=== PATIENT | male | born 1970 | race Caucasian/White ===

== ENCOUNTER 2023-01-01 06:56 | Emergency (ER) | payer MEDICAID ==
[~2023-01-01] VITALS: Ht 167.6 cm; Wt 74.8 kg
--- NOTE | 2023-01-01 07:09 | NUR ---
BIBSELF C/O NUMBNESS TO BILATERAL LEGS AND HANDS. +BLURRY VISION X1 WEEK WORSE STARTING YESTERDAY. PT A/OX4;VINCENTIAN SPEAKING. TOLERATING R/A WELL WITH NO RESP DISTRESS. CONNECTED PT TO POX AND MONITOR. SAFETY MEASURES IN PLACE.
--- NOTE | 2023-01-01 07:15 | NUR ---
RECEIVED PT FROM CORNELIO GONZALEZ PT AWAKEAND ALERT C/O NUMMBNESS ON LOWE EXTRAMITY AND VISOUN AWAKE AND ALERT FALLOW COMMAND
[2023-01-01] MEDS ORDERED: IV NS 0.9% 1,000 ML BAG IV ONE (08:00)
--- NOTE | 2023-01-01 08:05 | NUR ---
CX RAY AT BED SIDE
[2023-01-01 08:07] LABS: BASOPHILS % (AUTO) 0.6 % (0.0-2.0); EOSINOPHILS % (AUTO) 9.1 % (0.0-6.0); HEMATOCRIT 42 % (39-51); HEMOGLOBIN 13.9 g/dL (13.5-17.5); LYMPHOCYTES # (AUTO) 1.8 K/uL (0.8-4.8); LYMPHOCYTES % (AUTO) 24.6 % (20.0-44.0); MEAN CORPUSCULAR HGB CONC 33 g/dl (31.0-36.0); MEAN CORPUSCULAR VOLUME 89 fL (80-96); MONOCYTES # (AUTO) 0.6 K/uL (0.1-1.30); MONOCYTES % (AUTO) 7.7 % (2.0-12.0); NEUTROPHILS # (AUTO) 4.2 K/uL (1.8-8.9); PLATELET COUNT (AUTO) 324 K/uL (150-450); RED BLOOD CELL COUNT(AUTO) 4.69 MIL/uL (4.5-6.0); WHITE BLOOD COUNT (AUTO) 7.3 K/uL (4.3-11.0)
[2023-01-01 08:24] LABS: ALANINE AMINOTRANSFERASE 54 U/L (12-78); ALBUMIN 3.8 g/dL (3.4-5.0); ALKALINE PHOSPHATASE 108 U/L (46-116); ASPARTATE AMINOTRANSFERASE 36 U/L (15-37); BILIRUBIN,DIRECT 0.2 mg/dL (0.0-0.2); BILIRUBIN,TOTAL 0.8 mg/dL (0.2-1.0); CARBON DIOXIDE 28 mmol/L (21-32); CHLORIDE 98 mmol/L (98-107); CREATININE 0.7 mg/dL (0.6-1.3); POTASSIUM 4.5 mmol/L (3.5-5.1); UREA NITROGEN, BLOOD 12 mg/dL (7-18)
[2023-01-01 08:42] LABS: SODIUM SERUM 131 mmol/L (136-145)
[2023-01-01 08:43] LABS: GLUCOSE 382 mg/dL (74-106)
[2023-01-01] MEDS ORDERED: INSULIN REGULAR, HUMAN 100 UNIT/ML 10 ML VIAL SQ ONE (09:00)
[2023-01-01] MEDS ORDERED: INSULIN REGULAR, HUMAN 100 UNIT/ML 10 ML VIAL ONE (09:05)
--- NOTE | 2023-01-01 09:50 | NUR ---
IV removed. Catheter intact and site benign. Pressure and 4x4 applied to site. No bleeding noted.
--- NOTE | 2023-01-01 09:51 | NUR ---
ACCU CHECK DONE 346 DR LEXIS LOCKETT OK TO D/C HOME
--- NOTE | 2023-01-01 09:52 | NUR ---
Patient discharged to home in stable condition. Written and verbal after care instructions given. Patient verbalizes understanding of instruction.
[2023-01-01 10:02] VITALS: BP 172/101
== END 2023-01-01 10:03 | disposition home or self-care (01) ==
LOC: ER 06:56
DX: E11.65 Type 2 diabetes mellitus with hyperglycemia (principal); E11.40 Type 2 diabetes mellitus with diabetic neuropathy, unspecified; R06.02 Shortness of breath
CPT/HCPCS: 99285; 96360; 71045; 96372; 93005; 85025; 80048; 80076; 36415; 84484; 82962 ×3; J1815; J7030 ×2